=== PATIENT | male | born 1975 | race Caucasian/White ===

== ENCOUNTER 2017-07-03 07:27 | Emergency (ER) | payer OTHER ==
[~2017-07-03] VITALS: Ht 188 cm; Wt 123.0 kg
[2017-07-03] MEDS ORDERED: FLUOXETINE10 M2 PO (07:45)
[2017-07-03 08:08] LABS: HEMATOCRIT 44.4 % (39.0-50.0); IMMATURE GRANULOCYTES 0.6 % (0.0-1.0); MEAN CELL VOLUME 85.9 fL CALC (80.0-100.0); MEAN CORPUSCULAR HGB CONC 33.8 g/L CALC (32.0-36.0); NEUT# 6.74 thou/uL (1.82-7.42); RED BLOOD COUNT 5.17 mill/uL (4.70-6.10); RED CELL DISTRI WIDTH 12.4 % (11.5-15.5)
[2017-07-03 08:20] LABS: ALBUMIN 4.7 g/dL (3.2-5.0); ALKALINE PHOSPHATASE 87 u/l (38-126); AMYLASE 87 u/l (30-110); ANION GAP 16 (6-22 (CALC)); BILIRUBIN, TOTAL 0.6 mg/dL (0.0-1.4); BUN 13 mg/dL (9-20); BUN/CREATININE RATIO 14 (12-20 (CALC)); CALCIUM 9.9 mg/dL (8.4-10.2); CARBON DIOXIDE 27 mmol/l (22-30); CHLORIDE 101 mmol/l (95-108); CREATININE 0.9 mg/dL (0.7-1.3); GFR > 60 ML/MIN (>=60 (CALC)); GFR FOR AFR.AMER. > 60 ML/MIN (>=60 (CALC)); GLUCOSE 108 mg/dL (75-110); LIPASE 71 u/l (23-300); POTASSIUM 4.2 mmol/l (3.5-5.1); SGOT/AST 18 u/l (17-59); SGPT/ALT 36 u/l (21-72); SODIUM 140 mmol/l (137-146); TOTAL PROTEIN 7.9 g/dL (6.3-8.2)
[2017-07-03 08:32] LABS: MYOGLOBIN 24 ng/mL (0 - 121)
[2017-07-03] MEDS ORDERED: ULTRAM50 M1 PO (10:39)
[2017-07-03] MEDS ORDERED: ZOFRAN ODT4 MG PO (10:39)
[2017-07-03] MEDS ORDERED: PREVACID30 M1 PO (10:39)
[2017-07-03 11:11] VITALS: BP 126/79
== END 2017-07-03 11:11 | disposition home or self-care (01) | DRG 392 ==
LOC: ED 07:27
PROVIDERS: Emergency Medicine
DX: K29.70 Gastritis, unspecified, without bleeding (principal)
CPT/HCPCS: S0164